=== PATIENT | male | born 1995 | race African-American/Black ===

== ENCOUNTER 2022-10-08 17:35 | Emergency (ER) | payer OTHER ==
[2022-10-08] MEDS ORDERED: Sodium Chloride 0.9% 10 ML Syringe FLUSH PRN ×2 (17:59)
[2022-10-08] MEDS ORDERED: Sodium Chloride 0.9% 1,000 ML IV ONE (17:59)
[2022-10-08] MEDS ORDERED: Diphtheria,Pertussis(Acell),Tetanus Vaccine 0.5 ML Syringe IM ONE (17:59)
[2022-10-08] MEDS ORDERED: Sodium Chloride 0.9% 2.5 ML Syringe FLUSH PRN ×2 (17:59)
[2022-10-08] MEDS ORDERED: fentaNYL/Normal Saline 2,500 MCG in Premix Bag 1 BAG IV PRN (18:08)
[2022-10-08 18:15] LABS: BASOPHILS PERCENT AUTO 0.4 % (0.0-1.5); EOSINOPHILS ABSOLUTE AUTO 0.2 K/uL (0.0-0.7); EOSINOPHILS PERCENT AUTO 2.8 % (0.0-7.0); HEMATOCRIT 43.6 % (38.0-50.0); HEMOGLOBIN 14.8 g/dL (13.0-17.0); LYMPHOCYTES ABSOLUTE AUTO 2.5 K/uL (0.6-2.4); LYMPHOCYTES PERCENT AUTO 30.9 % (16.0-40.0); MEAN CORPUSCULAR HEMOGLOBIN 28.8 pg (27.0-32.0); MEAN CORPUSCULAR HGB CONC 33.9 g/dL (31.0-37.0); MONOCYTES ABSOLUTE AUTO 0.5 K/uL (0.0-0.8); MONOCYTES PERCENT AUTO 6.1 % (0.0-15.0); NEUTROPHILS ABSOLUTE AUTO 4.9 K/uL (1.4-5.7); NEUTROPHILS PERCENT AUTO 59.8 % (48.0-80.0); NRBC ABSOLUTE 0 K/uL; PLATELET COUNT,PLT 220 K/uL (150-400); RED BLOOD CELL COUNT 5.13 M/uL (4.50-5.90); WHITE BLOOD CELL COUNT,WBC 8.16 K/uL (4.0-11.0)
[2022-10-08] MEDS ORDERED: propofoL 100 ML IV SCH ×3 (18:15→21:35)
[2022-10-08 18:16] LABS: APPEARANCE,URINE CLEAR; BILIRUBIN,URINE NEGATIVE (NEGATIVE); COLOR,URINE YELLOW; GLUCOSE,URINE NEGATIVE (NEGATIVE); KETONES,URINE NEGATIVE (NEGATIVE); LEUKOCYTE ESTERASE,URINE NEGATIVE (NEGATIVE); NITRITE,URINE NEGATIVE (NEGATIVE); OCCULT BLOOD,URINE TRACE-INTACT (NEGATIVE); PROTEIN,URINE 30 mg/dL (NEGATIVE)
[2022-10-08] MEDS ORDERED: Rocuronium 50 MG/5 ML Vial IVPUSH ONE (18:16)
[2022-10-08] MEDS ORDERED: Propofol 200 MG/20 ML SDV IVPUSH ONE (18:21)
[2022-10-08 18:26] LABS: AMPHETAMINES SCREEN, URINE NEGATIVE (CUTOFF=500); BARBITURATE SCREEN,URINE NEGATIVE (CUTOFF=200); BENZODIAZEPINES SCREEN,URINE NEGATIVE (CUTOFF=150); BUPRENORPHINE SCREEN,URINE NEGATIVE (CUTOFF=10); METHADONE SCREEN, URINE NEGATIVE (CUTOFF=200); METHAMPHETAMINES SCREEN, URINE NEGATIVE (CUTOFF=500); OXYCODONE SCREEN,URINE NEGATIVE (CUT0FF=100); PCP SCREEN,URINE NEGATIVE (CUTOFF=25); PROPOXYPHENE SCREEN,URINE NEGATIVE (CUTOFF=300); THC SCREEN,URINE 20 NG/ML NEGATIVE (CUTOFF=50)
[2022-10-08 18:28] LABS: INR 1.04 (0.86-1.11)
[2022-10-08 18:34] LABS: AMORPHOUS SEDIMENT,URINE OCCASIONAL (NEGATIVE); BACTERIA,URINE OCCASIONAL (NEGATIVE); EPITHELIAL CELLS,URINE RARE (NONE-FEW); MUCUS,URINE MANY (NONE-MOD); RBC,URINE 0-5 (0-2/HPF); SQUAMOUS EPITHELIAL CELLS,UR RARE; WBC,URINE 0-2 (0-5/HPF)
[2022-10-08 18:39] LABS: A/G RATIO 1.1 (0.9-1.6); ALANINE AMINOTRANSFERASE,ALT 53 IU/L (14-63); ALBUMIN 3.7 g/dL (3.4-5.0); ALKALINE PHOSPHATASE 71 U/L (46-116); ASPARTATE AMNIOTRANSFERASE,AST 48 IU/L (15-37); BILIRUBIN TOTAL 0.3 mg/dL (0.2-1.0); BLOOD UREA NITROGEN,BUN 11 mg/dL (7.0-18.0); CALCIUM 8.1 mg/dL (8.5-10.1); CARBON DIOXIDE,CO2 28.1 mmol/L (21.0-32.0); CHLORIDE,CL 108 mmol/L (98-107); CREATININE 1.2 mg/dL (0.8-1.3); GLUCOSE RANDOM 118 mg/dL (74-106); LIPASE 61 U/L (73-393); POTASSIUM,K 3.9 mmol/L (3.5-5.1); PROTEIN TOTAL,TP 7.1 g/dL (6.4-8.2); SODIUM,NA 144 mmol/L (136-148)
[2022-10-08 18:40] LABS: ESTIMATED GFR 85 mL/min (>60); ETHANOL BLOOD MEDICAL < 3.0 mg/dL
[2022-10-08] MEDS ORDERED: Iopamidol 755 Mg/ML 100 ML Bottle IVPUSH ONE ×2 (19:14)
[2022-10-08] MEDS ORDERED: ceFAZolin 2 GM in Sodium Chloride 0.9% 50 ML IV ONE (20:17)
[2022-10-08] MEDS ORDERED: propofoL 100 ML ONE ×2 (20:17→21:34)
[2022-10-08 21:32] LABS: BASE EXCESS ARTERIAL -0.8 (-2.0-3.0); BICARBONATE,ARTERIAL 25 mEq/L (22-26); PCO2 ARTERIAL 45 mmHG (35-45); PO2 ARTERIAL 94 mmHG (80-105)
== END 2022-10-08 22:01 ==
LOC: EDBD 17:35 → MW.ED 17:35
DX: S06.6XAA Traumatic subarachnoid hemorrhage with loss of consciousness status unknown, initial encounter (principal); S06.5XAA Traumatic subdural hemorrhage with loss of consciousness status unknown, initial encounter; S00.03XA Contusion of scalp, initial encounter; V86.56XA Driver of dirt bike or motor/cross bike injured in nontraffic accident, initial encounter; Y92.410 Unspecified street and highway as the place of occurrence of the external cause
CPT/HCPCS: 31500; 32551; 36415; 36600; 43752; 51702; 70450; 71045; 71260; 72125; 72170; 74177; 80053; 80305; 80307; 81001; 82803; 83690; 85025; 85610; 86850; 86900; 86901; 90471; 90715; 96365; 96366; 96368; 96375; 99291; J0690; J1953; J2704; J3010; J3490; J7030; J7050; J7060; Q9967; 72129; 72129-26; 72132; 72132-26; 93010